=== PATIENT | male | born 1975 | race Caucasian/White ===

== ENCOUNTER → 2024-09-15 | Outpatient (CLI) | payer BC, SELFPAY ==
--- NOTE | 2024-09-15 13:30 | XR_ITS ---
Examination: CT abdomen and pelvis without contrast. Coronal 3-D reconstructions. Sagittal 2-D reconstructions. 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 Low dose protocols were performed. One or more of the following dose reduction techniques were used; automated exposure control, adjustment of the mA and/or KV according to patient size, use of iterative reconstruction technique. Findings: No focal liver or splenic lesion Contracted gallbladder No pancreatic mass Absent left kidney No right renal mass Aorta normal size No abdominal or pelvic lymphadenopathy Normal appendix No diverticulitis Mild thickening urinary bladder wall up to 6 mm Transverse prostate dimension 3.9 cm No osteoblastic metastatic disease IMPRESSION: Mild thickening of the urinary bladder wall up to 6 mm, differential would include cystitis Absent left kidney No right renal mass No abdominal or pelvic lymphadenopathy
== END | disposition home or self-care (01) ==
PROVIDERS: Referring Provider Nurse Practitioner Family; Visit Provider Nurse Practitioner Family
DX: N32.89 Other specified disorders of bladder (principal)
CPT/HCPCS: 74176

== ENCOUNTER → 2024-09-21 | Outpatient (BNVA) | payer BC, SELFPAY | END | disposition home or self-care (01) | PROVIDERS: PCP Nurse Practitioner Family; Referring Provider Nurse Practitioner Family; Visit Provider Nurse Practitioner Family | DX: J44.9 Chronic obstructive pulmonary disease, unspecified (principal); I10 Essential (primary) hypertension; R22.33 Localized swelling, mass and lump, upper limb, bilateral; Z12.79 Encounter for screening for malignant neoplasm of other genitourinary organs; Z11.3 Encounter for screening for infections with a predominantly sexual mode of transmission; N30.00 Acute cystitis without hematuria | CPT/HCPCS: 99212; G0463 ==

== ENCOUNTER → 2024-10-19 | Outpatient (BNVA) | payer BC, SELFPAY | END | disposition home or self-care (01) | PROVIDERS: PCP Nurse Practitioner Family; Referring Provider Nurse Practitioner Family; Visit Provider Nurse Practitioner Family | DX: Z71.2 Person consulting for explanation of examination or test findings (principal); E78.5 Hyperlipidemia, unspecified; F10.10 Alcohol abuse, uncomplicated; K76.0 Fatty (change of) liver, not elsewhere classified | CPT/HCPCS: 99212; G0463 ==

== ENCOUNTER → 2024-11-02 | Outpatient (CLI) | payer BC, SELFPAY ==
--- NOTE | 2024-11-02 11:00 | XR_ITS ---
Examination: Ultrasound soft tissue extremity right hand TECHNIQUE: Sonographic images soft tissue right hand Exam date and time: November 02, 2024 1106 hours INDICATIONS: Palpable lumps palmar aspect right hand 2 years and pain one year FINDINGS: 17 x 5 x 8 mm soft tissue mass mid right, complex partially cystic IMPRESSION: Soft tissue mass as above, recommend MRI right hand without contrast follow-up
--- NOTE | 2024-11-02 11:00 | XR_ITS ---
Examination: Ultrasound soft tissue extremity left hand TECHNIQUE: Sonographic images soft tissue left hand INDICATIONS: Palpable lump palmar aspect of the hand 2 years with pain one year. FINDINGS: 10 x 2 x 6 mm soft tissue mass palmar hand at the area concern lateral aspect IMPRESSION: Soft tissue mass as above Recommend MRI hand without contrast follow-up
== END | disposition home or self-care (01) ==
PROVIDERS: PCP Nurse Practitioner Family; Referring Provider Nurse Practitioner Family; Visit Provider Nurse Practitioner Family
DX: R22.33 Localized swelling, mass and lump, upper limb, bilateral (principal)
CPT/HCPCS: 76882

== ENCOUNTER → 2024-11-24 | Outpatient (BNVA) | payer BC, SELFPAY | END | disposition home or self-care (01) | PROVIDERS: PCP Nurse Practitioner Family; Referring Provider Nurse Practitioner Family; Visit Provider Nurse Practitioner Family | DX: R22.33 Localized swelling, mass and lump, upper limb, bilateral (principal); Z71.2 Person consulting for explanation of examination or test findings | CPT/HCPCS: 99212; G0463 ==

== ENCOUNTER → 2025-01-18 | Outpatient (BNVA) | payer BC, SELFPAY | END | disposition home or self-care (01) | PROVIDERS: PCP Nurse Practitioner Family; Referring Provider Nurse Practitioner Family; Visit Provider Nurse Practitioner Family | DX: M25.561 Pain in right knee (principal); R94.5 Abnormal results of liver function studies; I10 Essential (primary) hypertension; E78.5 Hyperlipidemia, unspecified; F10.10 Alcohol abuse, uncomplicated | CPT/HCPCS: 99215 ==

== ENCOUNTER → 2025-01-26 | Outpatient (BNVA) | payer BC, SELFPAY | END | disposition home or self-care (01) | PROVIDERS: PCP Nurse Practitioner Family; Referring Provider Nurse Practitioner Family; Visit Provider Nurse Practitioner Family | DX: R94.5 Abnormal results of liver function studies (principal); F10.10 Alcohol abuse, uncomplicated; Z00.01 Encounter for general adult medical examination with abnormal findings | CPT/HCPCS: 99213 ==

== ENCOUNTER → 2025-02-04 | Outpatient (BNVA) | payer BC, SELFPAY | END | disposition home or self-care (01) | PROVIDERS: PCP Nurse Practitioner Family; Referring Provider Nurse Practitioner Family; Visit Provider Nurse Practitioner Family | DX: R94.5 Abnormal results of liver function studies (principal); Z00.01 Encounter for general adult medical examination with abnormal findings; M25.561 Pain in right knee; K76.0 Fatty (change of) liver, not elsewhere classified; J44.9 Chronic obstructive pulmonary disease, unspecified; M19.042 Primary osteoarthritis, left hand; M19.041 Primary osteoarthritis, right hand; I10 Essential (primary) hypertension; Z90.5 Acquired absence of kidney; E78.5 Hyperlipidemia, unspecified; F17.210 Nicotine dependence, cigarettes, uncomplicated; Z71.85 Encounter for immunization safety counseling | CPT/HCPCS: 99215 ==

== ENCOUNTER → 2025-02-12 | Outpatient (BNVA) | payer BC, SELFPAY | END | disposition home or self-care (01) | PROVIDERS: PCP Nurse Practitioner Family; Referring Provider Nurse Practitioner Family; Visit Provider Nurse Practitioner Family | DX: Z71.2 Person consulting for explanation of examination or test findings (principal); R94.5 Abnormal results of liver function studies; K76.0 Fatty (change of) liver, not elsewhere classified | CPT/HCPCS: 99212; G0463 ==

== ENCOUNTER → 2025-03-10 | Outpatient (BNVA) | payer BC, SELFPAY | END | disposition home or self-care (01) | PROVIDERS: PCP Nurse Practitioner Family; Referring Provider Nurse Practitioner Family; Visit Provider Nurse Practitioner Family | DX: Z71.2 Person consulting for explanation of examination or test findings (principal); R19.5 Other fecal abnormalities; Z85.528 Personal history of other malignant neoplasm of kidney; Z12.11 Encounter for screening for malignant neoplasm of colon; Z90.5 Acquired absence of kidney; F10.10 Alcohol abuse, uncomplicated | CPT/HCPCS: 99212; G0463 ==

== ENCOUNTER → 2025-03-20 | Outpatient (CLI) | payer BC, SELFPAY ==
--- NOTE | 2025-03-20 08:00 | XR_ITS ---
Examination: MRI right hand, without contrast Date and time of exam: March 20, 2025 0817 hours INDICATIONS: Palpable lump palmar surface of the hand at the level of the distal fourth metacarpal, tender to touch Technique: Multiple axial sagittal and coronal images of the left hand have been obtained with the Siemens high-resolution 1.5 [employer] MRI scanner. Images obtained include T2-weighted fat-suppressed sagittal sections, TR 3500, TE 46, T2 weighted coronal fat suppressed images, TR 3050, TE 84, T2-weighted transverse fat suppressed images, TR 3260, TE 63, proton density transverse images, TR 4720 TE 46, and T1 weighted coronal images, TR 560, TE 13. Findings: Adequate marrow signal No occult fracture or avascular necrosis bone contusion or marrow edema Flexor tendons appear intact including fourth digit No soft tissue tumor mass is noted Flexor tendons at the wrist are unremarkable with normal median nerve No ganglion cyst IMPRESSION: No bone contusion marrow edema or occult fracture No soft tissue mass palmar to the fourth metacarpal Recommend ultrasound soft tissue hand follow-up at the area concern
--- NOTE | 2025-03-20 08:45 | XR_ITS ---
Examination: MRI left hand, without contrast Date and time of exam: March 20, 2025 0837 hours INDICATIONS: Palpable lump left hand fifth metacarpal tenderness to touch increasing in size over the last 4 years Technique: Multiple axial sagittal and coronal images of the left hand have been obtained with the Siemens high-resolution 1.5 [employer] MRI scanner. Images obtained include T2-weighted fat-suppressed sagittal sections, TR 3500, TE 46, T2 weighted coronal fat suppressed images, TR 3050, TE 84, T2-weighted transverse fat suppressed images, TR 3260, TE 63, proton density transverse images, TR 4720 TE 46, and T1 weighted coronal images, TR 560, TE 13. Findings: Homogeneous marrow signal No occult fracture or avascular necrosis Flexor and extensor tendons fifth digit appear intact with no annular abiel tears Flexor and extensor tendons at the wrist appear intact with no abnormality of the median nerve IMPRESSION: No soft tissue or osseous mass is noted Recommend follow-up ultrasound fifth digit with the radiologist in attendance
== END | disposition home or self-care (01) ==
LOC: SMRI 07:36
PROVIDERS: PCP Nurse Practitioner Family; Referring Provider Nurse Practitioner Family; Visit Provider Nurse Practitioner Family
DX: R22.33 Localized swelling, mass and lump, upper limb, bilateral (principal)
CPT/HCPCS: 73218

== ENCOUNTER → 2025-04-16 | Outpatient (BNVA) | payer BC, SELFPAY | END | disposition home or self-care (01) | PROVIDERS: PCP Nurse Practitioner Family; Referring Provider Nurse Practitioner Family; Visit Provider Nurse Practitioner Family | DX: Z71.2 Person consulting for explanation of examination or test findings (principal); R22.33 Localized swelling, mass and lump, upper limb, bilateral | CPT/HCPCS: 99212; G0463 ==

== ENCOUNTER → 2025-05-07 | Outpatient (BNVA) | payer BC, SELFPAY | END | disposition home or self-care (01) | PROVIDERS: PCP Nurse Practitioner Family; Referring Provider Nurse Practitioner Family; Visit Provider Nurse Practitioner Family | DX: Z71.2 Person consulting for explanation of examination or test findings (principal); J44.9 Chronic obstructive pulmonary disease, unspecified; E78.5 Hyperlipidemia, unspecified; I10 Essential (primary) hypertension | CPT/HCPCS: 99212; G0463 ==

== ENCOUNTER → 2025-08-25 | Outpatient (CLI) | payer OTHER, SELFPAY ==
[2025-08-25 10:19] LABS: Basophils # (Auto) 0.1 Thou/mm3 (0.0-0.2); Basophils % (Auto) 1 % (0-2.5); Eosinophils # (Auto) 0.2 Thou/mm3 (0.0-0.5); Eosinophils % (Auto) 3 % (0-10); Hematocrit 44.3 % (41.0-53.0); Hemoglobin 14.8 g/dL (13.5-16.0); Immature Granulocytes Auto 0.01 Thou/mm3 (0.00-0.00); Lymphocytes # (Auto) 1.8 Thou/mm3 (1.0-4.8); Lymphocytes % (Auto) 25 % (10-50); Mean Corpuscular HGB Conc 33.4 g/dl (31.0-37.0); Mean Corpuscular Hemoglobin 29.3 pg (25.0-35.0); Mean Corpuscular Volume 88 fL (80-100); Monocytes # (Auto) 0.6 Thou/mm3 (0.0-0.8); Monocytes % (Auto) 9 % (0-12); Neutrophils # (Auto) 4.5 Thou/mm3 (1.8-7.7); Neutrophils % (Auto) 62 % (37-80); Nucleated Red Blood Cell # 0.00 Thou/mm3 (0.00-0.00); Nucleated Red Blood Cell % 0 /100 WBC (0); Platelet Count 278 Thou/mm3 (140-440); RDW Standard Deviation 41.2 fL (35.1-43.9); Red Blood Count 5.05 Miln/mm3 (4.50-5.90); White Blood Count 7.2 Thou/mm3 (3.8-10.6)
[2025-08-25 10:34] LABS: Prostate Specific Antigen 3.66 ng/mL (0-4.00)
[2025-08-25 10:38] LABS: Alanine Aminotransferase 15 U/L (10-49); Albumin, Serum 4.8 gm/dL (3.5-5.0); Albumin/Globulin Ratio 2.3 (1.2-2.2); Alkaline Phosphatase 69 U/L (46-116); Anion Gap 9 (7-16); Aspartate Amino Transferase 24 U/L (0-34); BUN/Creatinine Ratio 9 Ratio (12-20); Bilirubin,Total 0.9 mg/dL (0.3-1.2); Blood Urea Nitrogen 14 mg/dL (9-23); Calcium 9.6 mg/dL (8.3-10.6); Calcium (Corrected) 9.6 mg/dL (8.5-10.1); Carbon Dioxide 27.3 mMol/L (20.0-31.0); Cardiac Risk Estimate 3.2 RATIO (4.0-6.7); Chloride 107 mMol/L (98-107); Cholesterol 191 mg/dL (132-200); Creatinine (Component) 1.5 mg/dL (0.6-1.3); Globulin 2.1 gm/dL (2.3-3.5); Glucose 112 mg/dL (74-106); HDL Cholesterol 60 mg/dL (40-60); LDL Cholesterol,Calculated 117 mg/dL (0-130); Osmolality,Calculated 286 (275-295); Potassium 4.9 mMol/L (3.4-5.1); Sodium 143 mMol/L (136-145); Thyroid Stimulating Hormone 1.38 uIU/mL (0.55-4.78); Total Protein 6.9 gm/dL (5.7-8.2); Triglycerides 70 mg/dL (30-150); eGFR 57 See Note
== END | disposition home or self-care (01) ==
PROVIDERS: PCP Nurse Practitioner Family; Referring Provider Nurse Practitioner Family; Visit Provider Nurse Practitioner Family
DX: N18.30 Chronic kidney disease, stage 3 unspecified (principal); Z12.5 Encounter for screening for malignant neoplasm of prostate
CPT/HCPCS: 36415; 80053; 80061; 84153; 84443; 85025